=== PATIENT | female | born 1970 | race African-American/Black ===

== ENCOUNTER → 2021-07-18 | Outpatient (CLI) | payer BC ==
[2015-03-31 09:00] VITALS: BP 119/66
[~2021-07-18] MED LIST: NO MEDS
--- NOTE | 2021-07-18 16:29 | RAD ---
EXAM: Renal sonogram. HISTORY: Elevated creatinine. TECHNIQUE: Sonographic imaging of the abdomen was performed. COMPARISON: None. FINDINGS: The kidneys are normal in size. There is a 10 mm cyst with suspected internal septation or debris within the inferior right kidney. There is a prominent left renal pelvis and proximal ureter. There is a small amount of suspected debris within the urinary bladder. IMPRESSION: 1. Prominent left renal pelvis and ureter. This may be due to the hydration status of patient. There is no vida hydronephrosis. 2. 10 mm suspected complicated cyst with internal septation or debris within the right kidney. Sonogr aphic follow-up can be performed in 6 months to confirm benignity. 3. Small amount of debris within urinary bladder. Correlate with urinalysis. Electronically signed by: Tammie Martinez MD (07/18/2021 4:26 PM) [id number]
== END ==
LOC: US 15:09
PROVIDERS: ATTEND Family Medicine
DX: N28.1 Cyst of kidney, acquired (principal); N32.89 Other specified disorders of bladder
CPT/HCPCS: 76770